=== PATIENT | male | born 1930 | race Caucasian/White ===

== ENCOUNTER 2017-12-16 08:45 | Inpatient (IN) | payer MEDICARE ==
[~2017-12-16] VITALS: Ht 170.2 cm; Wt 88.0 kg
[~2017-12-16 08:45] MED LIST: AMLO10TA2 PO; CLOP75TA32 PO; DIGO125T87 PO; GABA-531 PO; LOSA50TA37 PO; METO-408 PO; MIRT30TA6 PO; ROPI3TAB3 PO; SIMV10TA6 PO; TAMS0.4C32 PO
[2017-12-16 09:18] LABS: APPEARANCE,URINE Clear (CLEAR); BILIRUBIN,URINE Negative (NEGATIVE); COLOR,URINE Yellow (YELLOW); GLUCOSE, URINE (UA) Negative (NEGATIVE); KETONES,URINE Negative (NEGATIVE); LEUKOCYTE ESTERASE ,URINE Negative (NEGATIVE); NITRATE,URINE Negative (NEGATIVE); OCCULT BLOOD,URINE Negative (NEGATIVE); PROTEIN,URINE Trace (NEGATIVE); UROBILINOGEN,URINE 0.2 mg/dL (0.2-1.0)
[2017-12-16] MEDS ORDERED: FUROSEMIDE 10 MG/ML 4ML VIAL ONE (09:26)
[2017-12-16] MEDS ORDERED: ASPIRIN 325 MG TABLET ONE (09:26)
[2017-12-16 09:30] LABS: BASOPHILS % (AUTO) 0.5 % (0.0-5.0); EOSINOPHILS % (AUTO) 0.7 % (0.0-8.0); HEMATOCRIT 37.6 % (42-54); LYMPHOCYTES % (AUTO) 15.1 % (21.0-51.0); MEAN CORPUSCULAR HEMOGLOBIN 30.4 pg (27.0-33.0); MEAN CORPUSCULAR HGB CONC 34.8 g/dL (32.0-36.0); MEAN CORPUSCULAR VOLUME 87.4 fL (79-99); MONOCYTES % (AUTO) 21.1 % (3.0-13.0); NEUTROPHILS % (AUTO) 62.6 % (40.0-77.0); PLATELET COUNT (AUTO) 136 K/uL (130-400); RED CELL DISTRIBUTION WIDTH 14.6 % (11.0-15.5); WHITE BLOOD COUNT (AUTO) 10.8 K/uL (4.8-10.8)
[2017-12-16 09:57] LABS: INR 0.94 (0.85-1.15); PARTIAL THROMBOPLASTIN TIME 27.9 SEC (26.3-35.5); PROTHROMBIN TIME 9.9 SEC (9.6-11.6)
[2017-12-16 10:08] LABS: ALBUMIN 4.3 g/dL (3.5-5.0); BILIRUBIN,TOTAL 1.1 mg/dL (0.2-1.0); CREATINE KINASE MB 1.9 ng/mL (0.5-3.6); TOTAL PROTEIN, SERUM 7.6 g/dL (6.0-8.3)
[2017-12-16] MEDS ORDERED: NITROGLYCERIN 1GM/1 INCH PACKET TD ONE (11:20)
[2017-12-16] MEDS: FUROSEMIDE 10 MG/ML 4ML VIAL IVP SCH (12:00)
[2017-12-16] MEDS ORDERED: ACETAMINOPHEN 325 MG TAB PO PRN (19:15)
[2017-12-16 19:22] VITALS: BP 134/64
[2017-12-16 23:33] VITALS: BP 134/51
[2017-12-17] MEDS: FUROSEMIDE 10 MG/ML 4ML VIAL IVP SCH ×3 (00:18→21:48)
[2017-12-17] MEDS ORDERED: DILT120T PO (00:58)
[2017-12-17 04:26] VITALS: BP 135/50
[2017-12-17 07:24] VITALS: BP 170/88
[2017-12-17] MEDS: TAMSULOSIN HCL 0.4 MG CAP.ER.24H PO SCH (08:42)
[2017-12-17] MEDS: AMLODIPINE BESYLATE 5 MG TAB PO SCH (08:43)
[2017-12-17] MEDS: CLOPIDOGREL BISULFATE 75 MG TAB PO SCH (08:43)
[2017-12-17] MEDS: LOSARTAN 50 MG TABLET PO SCH ×2 (08:43→21:47)
[2017-12-17] MEDS: DIGOXIN 125 MCG TABLET PO SCH (08:44)
[2017-12-17] MEDS: ENOXAPARIN SODIUM 40 MG/0.4 ML SYRINGE SQ SCH (08:47)
[2017-12-17] MEDS: ***HM***Metoprolol Succinate 12.5 MG PO SCH (08:51)
[2017-12-17 11:35] VITALS: BP 161/72
[2017-12-17] MEDS: GABAPENTIN 300 MG CAPSULE PO SCH ×2 (15:17→21:00)
[2017-12-17] MEDS: ROPINIROLE HCL 1 MG TABLET PO SCH ×2 (15:18→21:00)
[2017-12-17 15:50] VITALS: BP 141/66
[2017-12-17 20:00] VITALS: BP 145/62
[2017-12-17] MEDS ORDERED: SODIUM CHLORIDE 45 ML SPRY NS SCH (21:00)
[2017-12-17] MEDS ORDERED: ATORVASTATIN CALCIUM 10 MG TABLET PO SCH (21:00)
[2017-12-17] MEDS ORDERED: MIRTAZAPINE 15 MG TABLET PO SCH (21:00)
[2017-12-17] MEDS ORDERED: GABAPENTIN 300 MG CAPSULE PO SCH (21:00)
[2017-12-17] MEDS ORDERED: ROPINIROLE HCL 1 MG TABLET PO SCH (21:00)
[2017-12-18] VITALS: BP 142/68
[2017-12-18 04:00] VITALS: BP 114/55
[2017-12-18] MEDS: ***HM***Metoprolol Succinate 12.5 MG PO SCH (07:44)
[2017-12-18 08:00] VITALS: BP 114/68
[2017-12-18] MEDS ORDERED: FURO40TA7 PO (10:16)
[2017-12-18] MEDS: CLOPIDOGREL BISULFATE 75 MG TAB PO SCH (10:21)
[2017-12-18] MEDS: DIGOXIN 125 MCG TABLET PO SCH (10:22)
[2017-12-18] MEDS: FUROSEMIDE 10 MG/ML 4ML VIAL IVP SCH (10:22)
[2017-12-18] MEDS: LOSARTAN 50 MG TABLET PO SCH (10:22)
[2017-12-18] MEDS: TAMSULOSIN HCL 0.4 MG CAP.ER.24H PO SCH (10:22)
[2017-12-18] MEDS: AMLODIPINE BESYLATE 5 MG TAB PO SCH (10:22)
[2017-12-18] MEDS: ENOXAPARIN SODIUM 40 MG/0.4 ML SYRINGE SQ SCH (10:23)
[2017-12-18 12:00] VITALS: BP 129/59
== END 2017-12-18 15:00 | disposition home or self-care (01) | DRG 293 ==
LOC: EDH 08:45 → EDHIP 11:35 → 2DH 18:24
PROVIDERS: ADMIT Family Medicine; ATTEND Family Medicine
DX: I11.0 Hypertensive heart disease with heart failure (principal); E78.5 Hyperlipidemia, unspecified; I25.10 Atherosclerotic heart disease of native coronary artery without angina pectoris; I50.33 Acute on chronic diastolic (congestive) heart failure; N40.0 Benign prostatic hyperplasia without lower urinary tract symptoms; Z87.891 Personal history of nicotine dependence; Z95.1 Presence of aortocoronary bypass graft
CPT/HCPCS: 36415; 71045; 80053; 81003; 82550; 82553; 83874; 83880; 84484; 85025; 85610; 85730; 93005; 93306; J1650; J1940